=== PATIENT | male | born 1975 | race Caucasian/White ===

== ENCOUNTER 2022-04-19 10:40 | Emergency (ER) | payer BC, OTHER ==
[2022-04-19 10:46] VITALS: BP 169/89; PULSE 81; RESP 16; TEMP 98.7; BMI 36.5
[2022-04-19 11:49] LABS: HEMATOCRIT 49.6 % (35.4-49); HEMOGLOBIN 17.3 G/dL (11.7-16.9); MCHC 34.9 g/dl (32.0-35.9); MEAN CELL VOLUME 88.7 fl (80-96); MEAN PLT VOLUME 8.4 fl (7.5-11.1); PLATELET COUNT 206.3 10^3/uL (134-434); RBC 5.59 10^6/uL (4.00-5.60); RDW 13.5 % (11.9-15.9); WHITE BLOOD COUNT 7.6 10^3/uL (4.0-10.8)
[2022-04-19 12:11] LABS: ALBUMIN 4.7 g/dl (3.4-5.0); CALCIUM 9.3 mg/dl (8.5-10); CREATININE 0.9 mg/dl (0.55-1.3); TOT PROT 7.9 g/dl (6.4-8.2)
== END 2022-04-19 12:50 | disposition home or self-care (01) ==
LOC: FER 10:40
DX: R55 Syncope and collapse (principal); J06.9 Acute upper respiratory infection, unspecified
CPT/HCPCS: 0241U-QW; 36415; 71046-TC-FY; 80053; 84484; 85027; 93005; 99285-25

== ENCOUNTER 2022-06-30 23:08 | Emergency (ER) | payer OTHER ==
[2022-06-30 23:44] VITALS: BP 156/92; PULSE 92; RESP 16; TEMP 98.1; BMI 36.5
[2022-07-01 01:10] LABS: BASO % 0.6 % (0-2.0); EOS % 1.7 % (0-4.5); HEMATOCRIT 43.9 % (35.4-49); HEMOGLOBIN 15.2 GM/dL (11.7-16.9); LYMPH % 23.3 % (8-40); MCH 29.7 pg (25.7-33.7); MCHC 34.6 g/dl (32.0-35.9); MEAN CELL VOLUME 85.6 fl (80-96); MEAN PLT VOLUME 8.1 fl (7.5-11.1); MONO % 7.2 % (3.8-10.2); NEUT % 67.2 % (42.8-82.8); PLATELET COUNT 266 10^3/uL (134-434); RBC 5.13 M/mm3 (4.00-5.60); RDW 13.6 % (11.9-15.9); WHITE BLOOD COUNT 14.8 K/mm3 (4.0-10.0)
[2022-07-01 01:26] LABS: CALCIUM 8.6 mg/dL (8.5-10.1)
[2022-07-01 01:27] LABS: ALBUMIN 4.1 g/dl (3.4-5.0); BLOOD UREA NITROGEN 20.4 mg/dL (7-18); MAGNESIUM 2.3 mg/dL (1.8-2.4)
[2022-07-01 01:32] LABS: BILIRUBIN,TOTAL 0.9 mg/dL (0.2-1); TOT PROT 7.2 g/dl (6.4-8.2)
== END 2022-07-01 02:24 | disposition home or self-care (01) ==
LOC: JER 23:08
DX: R00.2 Palpitations (principal)
CPT/HCPCS: 36415; 71046-TC-FY; 80053; 83735; 84484; 85025; 85379; 93005; 93010; 99285-25

== ENCOUNTER 2022-11-19 13:23 | Emergency (ER) | payer OTHER ==
[2022-11-19 13:46] VITALS: PULSE 87; RESP 18; TEMP 98.2; BMI 34.3
[2022-11-19 14:44] LABS: HEMATOCRIT 50.7 % (35.4-49); HEMOGLOBIN 18.5 G/dL (11.7-16.9); MCH 32.6 pg (25.7-33.7); MCHC 36.5 g/dl (32.0-35.9); MEAN CELL VOLUME 89.4 fl (80-96); MEAN PLT VOLUME 7.8 fl (7.5-11.1); PLATELET COUNT 238.2 10^3/uL (134-434); RBC 5.67 10^6/uL (4.00-5.60); RDW 13.4 % (11.9-15.9)
[2022-11-19 14:51] LABS: PLATELET ESTIMATE ADEQUATE
[2022-11-19 14:54] LABS: ALBUMIN 5.1 g/dl (3.4-5.0); BILIRUBIN,TOTAL 1.9 mg/dl (0.2-1); BLOOD UREA NITROGEN 19.3 mg/dl (7-18); CALCIUM 9.8 mg/dl (8.5-10.1); CREATININE 1.4 mg/dl (0.6-1.3); MAGNESIUM 2.2 mg/dL (1.8-2.4); PHOSPHOROUS 3.53 (2.5-4.9); POTASSIUM 3.7 mmol/L (3.5-5.1); SGOT/AST 20.4 U/L (15-37)
[2022-11-19 15:37] VITALS: BP 145/100
== END 2022-11-19 15:40 | disposition home or self-care (01) ==
LOC: FER 13:23
DX: R00.2 Palpitations (principal); R94.31 Abnormal electrocardiogram [ECG] [EKG]
CPT/HCPCS: 36415; 80053; 83735; 84100; 84484; 85027; 93005; 99284-25